=== PATIENT | female | born 1950 | race Caucasian/White ===

== ENCOUNTER 2017-10-16 23:40 | Emergency (ER) | payer MEDICARE, BC ==
[2017-10-16] MEDS ORDERED: ASPIRIN 81 MG CHEWABLE TABLET PO ONE (23:49)
[2017-10-16] MEDS ORDERED: NITROGLYCERIN 0.4MG SL TABLET #25 BTL SL PRN (23:49)
--- NOTE | 2017-10-16 23:59 | Emergency Department Record ---
History of Present Illness - General Chief Complaint: Chest Pain Stated Complaint: CHEST PAIN Time Seen by Provider: 10/16/17 23:48 Source: Patient Mode of Arrival: Ambulatory - History of Present Illness Initial Comments: Substernal chest pain began about 30 minutes prior to arrival tonight. It began while at rest watching TV. Severity is 3/10. Quality is ache, discomfort. Radiation is to the anterior neck and right jaw. No belching, no shortness of breath, nausea, diaphoresis or palpitations. She has had this before but it has always resolved with aspirin. Tonight she took 325 of aspirin with resolution briefly but the symptoms returned. No DM, smoking, or family history. She has htn and elevated cholesterol for which she is taking medication. Onset/Timin -: Minutes(s) Onset: During rest Pain Location: Substernal, Left chest Severity: Mild Severity scale (1-10): 3 - Related Data Allergies Allergy/AdvReac Type Severity Reaction Status Date / Time indomethacin [From Indocin] Allergy Intermediate DIZZINESS Unverified 10/01/16 09:31 indomethacin sodium Allergy Intermediate DIZZINESS Unverified 10/01/16 09:31 [From Indocin] NSAIDS (Non-Steroidal Allergy Intermediate lip Unverified 10/03/17 11:59 Anti-Inflamma swelling levofloxacin [From Levaquin] Allergy Unknown PT UNSURE Unverified 10/01/16 09:31 OF REACTION Travel Screening - Travel/Exposure Within Last 30 Days Have you traveled within the last 30 days?: No - Travel/Exposure Within Last Year Have you traveled outside the [place] in the last year?: No - Additonal Travel Details Have you been exposed to anyone with a communicable illness?: No - Travel Symptoms Symptom Screening: None Review of Systems Reviewed: No additional complaints except as noted below Constitutional: Reports: As per HPI. Denies: Chills, Fever, Malaise, Night sweats, Weakness, Weight change Eyes: Reports: As per HPI. Denies: Eye discharge, Eye pain, Photophobia, Vision change ENT: Reports: As per HPI. Denies: Congestion, Dental pain, Ear pain, Epistaxis , Hearing loss, Throat pain Respiratory: Reports: As per HPI. Denies: Cough, Dyspnea, Hemoptysis, Stridor, Wheezes Cardiovascular: Reports: As per HPI. Denies: Arrhythmia, Chest pain, Dyspnea on exertion, Edema, Murmurs, Orthopnea, Palpitations, Paroxysmal nocturnal dyspnea, Rheumatic Fever, Syncope Endocrine: Reports: As per HPI. Denies: Fatigue, Heat or cold intolerance, Polydipsia, Polyuria Gastrointestinal: Reports: As per HPI. Denies: Abdominal pain, Constipation, Diarrhea, Hematemesis, Hematochezia, Melena, Nausea, Vomiting Genitourinary: Reports: As per HPI. Denies: Abnormal menses, Discharge, Dyspareunia, Dysuria, Frequency, Hematuria, Incontinence, Retention, Urgency Musculoskeletal: Reports: As per HPI. Denies: Arthralgia, Back pain, Gout, Joint swelling, Myalgia, Neck pain Skin: Reports: As per HPI. Denies: Bruising, Change in color, Change in hair/ nails, Lesions, Pruritus, Rash Neurological: Reports: As per HPI. Denies: Abnormal gait, Confusion, Headache, Numbness, Paresthesias, Seizure, Tingling, Tremors, Vertigo, Weakness Psychiatric: Reports: As per HPI. Denies: Anxiety, Auditory hallucinations, Depression, Homicidal thoughts, Suicidal thoughts, Visual hallucinations Hematological/Lymphatic: Reports: As per HPI. Denies: Anemia, Blood Clots, Easy bleeding, Easy bruising, Swollen glands Past Medical History - SOCIAL HISTORY Smoking Status: Never smoker Alcohol Use: None Drug Use: None - RESPIRATORY Hx Respiratory Disorders: No - CARDIOVASCULAR Hx Cardio Disorders: Yes Hx Hypertension: Yes - NEURO Hx Neuro Disorders: No - GI Hx GI Disorders: No - Hx Genitourinary Disorders: No - ENDOCRINE Hx Endocrine Disorders: No - MUSCULOSKELETAL Hx Musculoskeletal Disorders: No - PSYCH Hx Psych Problems: No - HEMATOLOGY/ONCOLOGY Hx Hematology/Oncology Disorders: No Family Medical History Any Significant Family History?: No Physical Exam - General General Appearance: Alert, Oriented x3, Cooperative, No acute distress - Head Head exam: Normal inspection - Eye Eye exam: Normal appearance, PERRL Pupils: Normal accommodation - ENT ENT exam: Normal exam, Mucous membranes moist, Normal external ear exam, Normal orophraynx, TM's normal bilaterally Ear exam: Normal external inspection. negative: External canal tenderness Nasal Exam: Normal inspection. negative: Discharge, Sinus tenderness Mouth exam: Normal external inspection, Tongue normal Teeth exam: Normal inspection. negative: Dental caries Throat exam: Normal inspection. negative: Tonsillar erythema, Tonsillar exudate - Neck Neck exam: Normal inspection, Full ROM. negative: Tenderness - Respiratory Respiratory exam: Normal lung sounds bilaterally. negative: Respiratory distress - Cardiovascular Cardiovascular Exam: Regular rate, Normal rhythm, Normal heart sounds - GI/Abdominal GI/Abdominal exam: Soft. negative: Tenderness - Rectal Rectal exam: Deferred - exam: Deferred - Extremities Extremities exam: Normal inspection, Full ROM, Normal capillary refill. negative: Calf tenderness, Pedal edema, Tenderness - Back Back exam: Reports: Normal inspection, Full ROM. Denies: CVA tenderness (R), CVA tenderness (L), Muscle spasm, Rash noted, Tenderness - Neurological Neurological exam: Alert, CN II-XII intact, Normal gait, Oriented X3, Reflexes normal. negative: Motor sensory deficit - Psychiatric Psychiatric exam: Normal affect, Normal mood - Skin Skin exam: Dry, Intact, Normal color, Warm Course Vital Signs 10/16/17 23:42 Temperature 98.1 F Pulse Rate 71 Respiratory 20 Rate Blood Pressure 189/85 Pulse Ox 97 - Reevaluation(s) Reevaluation #1: 10/17/17 00:16 The patient is chest pain free after one nitro. Reevaluation #2: Results discussed with patient and her spouse. All questions answered. They prefer she be cared for by Dr. Oleary at [facility], her PCP. IT was explained that [facility] do not do admissions, but that Dr. Puri is covering for [facility] and he would be glad to admit her. 10/17/17 00:48 10/17/17 01:27 Reevaluation #3: Patient and spouse wish to be discharged home and will return if symptoms recur. I explained that her work up tonight has NOT ruled out a heart attack or other life threatening situations, that she needs a cardiac workup as it has been over 5 years since her last one. She would like to be discharged home and will follow with Dr. Oleary in the office. I explained that this would be an AMA discharge that they would be free to return if they changed their minds or if the symptoms returned. The spouse of the patient is requesting a 4 hour troponin before they be discharged home. 4 am repeat troponin is planned. Patient and her spouse were also informed of her TSH being elevated and therefore her thyroid is low and needs to be evaluated by their PCP. 10/17/17 01:14 10/17/17 01:29 Patient has been resting and dozing. Awaiting repeat troponin results. 10/17/17 04:36 Reevaluation #4: Repeat troponin is unchanged after 4 hours. Patient is to obtain an out patient cardiac workup through the PCP. and to follow up with elevated TSH 10/17/17 04:51 Medical Decision Making - Management Options MDM Management: Additional Work-up Planned (e.g. ADM/Transfer/OP Study) ( admission planned, however patient wishes to leave AMA) - Data Complexity MDM Data: Labs Ordered and/or Reviewed, X-Ray Ordered and/or Reviewed (CXR two view: Neg per ED physician), EKG Ordered and/or Reviewed (NSR 72/min; no acute changes, no prior available) - Lab Data Result diagrams: 10/16/17 00:00 10/16/17 00:00 - EKG Data -: EKG Interpreted by Me EKG: No Acute Changes Disposition Disposition: Other (AMA) Clinical Impression: Chest pain at rest, Elevated TSH Disposition: Against Medical Advice Condition: (1) Good Instructions: Chest Pain (ED) Additional Instructions: Obtain an out patient cardiac work up through your PCP's office. Call for follow up next week. Your thyroid TSH level was elevated this visit at 5.03. Have your family doctor follow up on this abnormal blood test. You may return at any time if your change your mind, or if your symptoms return. You also may consider returning to [facility] if you change your mind to avoid the need for an ambulance transfer there after evaluation here. Continue present medications. Forms: Patient Portal Access Quality - Quality Measures Quality Measures: N/A - Blood Pressure Screening Does Patient Have Any of the Following: No Blood Pressure Classification: Pre-Hypertensive BP Reading Systolic Measurement: 189 Diastolic Measurement: 85 Screening for High Blood Pressure: Patient Exclusion, Hx of HTN [G9744]
[2017-10-17 00:16] LABS: BASO % 0.9 % (0-6); EOS % 6.8 % (0-6); GRAN % 39.4 % (47-80); HEMATOCRIT 40.3 % (35.0-47.0); HEMOGLOBIN 13.9 gm/dl (11.6-16.0); LYMPH % 46.1 % (16-45); MEAN CELL VOLUME 84.3 fl (81-97); MEAN CORPUSCULAR HEMOGLOBIN 29.1 pg (27-33); MEAN CORPUSCULAR HGB CONC 34.5 g/dl (32-36); MEAN PLATELET VOLUME 11.7 fl (7.4-10.4); MONO % 6.8 % (0-9); PLATELET COUNT 306 K/uL (130-400); RED BLOOD COUNT 4.78 M/uL (3.80-5.40); RED CELL DISTRIBUTION WIDTH 13.6 % (11.5-14.5); WHITE BLOOD COUNT W/O DIFF 7.8 K/uL (4.2-12.2)
[2017-10-17 00:23] LABS: BILIRUBIN,TOTAL < 0.20 mg/dL (0.2-1.0); BLOOD UREA NITROGEN 18 mg/dL (8-23); CREATININE 0.5 mg/dL (0.5-0.9); EST GLOMERULAR FILTRATION RATE > 60 mL/min; TOTAL PROTEIN 6.7 g/dL (6.6-8.7)
[2017-10-17 00:25] LABS: GLUCOSE,RANDOM 121 mg/dL (74-109)
[2017-10-17 00:26] LABS: INR 0.9; PARTIAL THROMBOPLASTIN TIME 23.8 SECONDS (24.5-39.1); PROTHROMBIN TIME (PATIENT) 9.3 SECONDS (9.5-12.1)
[2017-10-17 00:28] LABS: ALB/GLOB RATIO 1.5 (1.1-1.8); ALKALINE PHOSPHATASE 123 U/L (35-104); ALT/SGPT 10 U/L (<33); AST/SGOT 5 U/L (10.0-35.0)
[2017-10-17 00:37] LABS: NTpro B-NATRIURETIC PEPTIDE 21.37 pg/mL (<125)
[2017-10-17 00:47] LABS: THYROID STIMULATING HORMONE 5.03 uIU/mL (0.270-4.20)
--- NOTE | 2017-10-19 20:00 | RADIOLOGY REPORT ---
EXAM: CHEST 2 VIEWS HISTORY: MID STERNAL CHEST PAIN. TECHNIQUE: PA and lateral views. COMPARISON: Two-view chest 04/23/16. FINDINGS: Heart size is within normal limits. No definite acute infiltrate identified. No pleural effusion or pneumothorax evident. Minor apical pleural thickening bilaterally. Surgical clips right upper quadrant of the abdomen, presumably from cholecystectomy. Minor spurring in the thoracic spine. IMPRESSION: 1. MINOR APICAL PLEURAL THICKENING. 2. MINOR SPURRING IN THE SPINE. 3. NO ACUTE INFILTRATE EVIDENT. JOB NUMBER: [id number] [facility]
== END 2017-10-17 05:06 | disposition left against medical advice (07) ==
LOC: ER 23:40
DX: R07.89 Other chest pain (principal); R94.6 Abnormal results of thyroid function studies; I10 Essential (primary) hypertension
CPT/HCPCS: 71046; 80053; 83880; 84443; 84484; 85025; 85379; 85610; 85730; 93005; 93010; 99284

== ENCOUNTER 2017-12-03 13:31 | Emergency (ER) | payer MEDICARE, BC ==
[2017-12-03] MEDS ORDERED: Diph,Pert(Acell),Tet Vac 0.5 ML SYR IM ONE (13:54)
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
== END 2017-12-03 14:30 | disposition home or self-care (01) ==
LOC: ER 13:31
DX: T63.301A Toxic effect of unspecified spider venom, accidental (unintentional), initial encounter (principal); W57.XXXA Bitten or stung by nonvenomous insect and other nonvenomous arthropods, initial encounter
CPT/HCPCS: 90715; 99282

== ENCOUNTER 2018-05-07 18:53 | Observation (INO) | payer MEDICARE, BC ==
[2018-05-07] MEDS ORDERED: ONDANSETRON HCL IV 4 MG/2 ML VIAL IVP ONE (19:02)
[2018-05-07] MEDS ORDERED: MORPHINE SULFATE 10 MG/ML VIAL IVP ONE (19:03)
--- NOTE | 2018-05-07 19:10 | Emergency Department Record ---
History of Present Illness - General Chief Complaint: Abdominal Pain Stated Complaint: UPPER ABD PAIN Time Seen by Provider: 05/07/18 19:02 Source: Patient Mode of Arrival: Ambulatory Limitations: No limitations - History of Present Illness Initial Comments: 67 yo female presents to ED for evaluation of RUQ and epigastric pain symptoms associated with loose stools for the past 4 days. Patient reports that she was seen in ED at [facility] yesterday, underwent both CT and US of the abdomen, was diagnosed with pancreatitis. Patient denies fevers, chills, or vomiting symptoms. Patient reports previous chalino and partial hysterectomy. Patient reports that she had been taking a supplement vitamin with Lipase included, was told to stop the supplement and placed on a "light diet", was told to return to ED if her pain worsens. MD Complaint: Abdominal pain Onset/Timin -: Days(s) Location: Epigastric, RUQ Radiation: Back Migration to: R Flank Severity: Moderate Quality: Aching Improves With: Nothing Worsens With: Nothing Associated Symptoms: Denies other symptoms - Related Data Home Medications Medication Instructions Recorded Confirmed Last Taken Cyanocobalamin (Vitamin B-12) 5,000 mcg PO DAILY 05/07/18 05/07/18 Unknown [Vitamin B12] Rosuvastatin Calcium 5 mg PO DAILY 05/07/18 05/07/18 Unknown Allergies Allergy/AdvReac Type Severity Reaction Status Date / Time indomethacin [From Indocin] Allergy Intermediate DIZZINESS Verified 12/03/17 13: 37 indomethacin sodium Allergy Intermediate DIZZINESS Verified 12/03/17 13:37 [From Indocin] NSAIDS (Non-Steroidal Allergy Intermediate lip Verified 12/03/17 13:37 Anti-Inflamma swelling levofloxacin [From Levaquin] Allergy Unknown PT UNSURE Verified 12/03/17 13:37 OF REACTION Review of Systems Constitutional: Denies: Chills, Fever, Malaise, Night sweats Eyes: Denies: Eye discharge, Eye pain ENT: Denies: Congestion, Ear pain, Epistaxis Respiratory: Denies: Cough, Dyspnea Cardiovascular: Denies: Chest pain, Dyspnea on exertion Endocrine: Denies: Fatigue, Heat or cold intolerance Gastrointestinal: Reports: Abdominal pain, Diarrhea. Denies: Nausea, Vomiting Genitourinary: Denies: Incontinence, Retention Musculoskeletal: Reports: Back pain. Denies: Arthralgia Skin: Denies: Bruising, Change in color Neurological: Denies: Abnormal gait, Confusion, Headache Psychiatric: Denies: Anxiety Hematological/Lymphatic: Denies: Anemia, Blood Clots Past Medical History - SOCIAL HISTORY Smoking Status: Never smoker Drug Use: None - RESPIRATORY Hx Respiratory Disorders: No - CARDIOVASCULAR Hx Cardio Disorders: Yes Hx Hypertension: Yes - NEURO Hx Neuro Disorders: No - GI Hx GI Disorders: No - Hx Genitourinary Disorders: No - ENDOCRINE Hx Endocrine Disorders: No - MUSCULOSKELETAL Hx Musculoskeletal Disorders: No - PSYCH Hx Psych Problems: No - HEMATOLOGY/ONCOLOGY Hx Hematology/Oncology Disorders: Yes Hx Cancer: Yes Comment:: melanoma Physical Exam - General General Appearance: Alert, Oriented x3, Cooperative, Mild distress Limitations: No limitations - Head Head exam: Atraumatic, Normocephalic, Normal inspection Head exam detail: negative: Abrasion, Contusion, Felix's sign, General tenderness, Hematoma, Laceration - Eye Eye exam: Normal appearance. negative: Conjunctival injection, Periorbital swelling, Periorbital tenderness, Scleral icterus - ENT Ear exam: negative: Auricular hematoma, Auricular trauma Nasal Exam: negative: Active bleeding, Discharge, Dried blood, Foreign body Mouth exam: negative: Drooling, Laceration, Muffled voice, Tongue elevation - Neck Neck exam: Normal inspection. negative: Meningismus, Tenderness - Respiratory Respiratory exam: Normal lung sounds bilaterally. negative: Respiratory distress, Rhonchi, Stridor, Wheezes - Cardiovascular Cardiovascular Exam: Regular rate, Normal rhythm, Normal heart sounds - GI/Abdominal GI/Abdominal exam: Soft, Other (Overall nontender, nondistended abdominal examination. No peritoneal signs, guarding, or rebound are present.). negative : Rebound, Rigid, Tenderness - Rectal Rectal exam: Deferred - exam: Deferred - Extremities Extremities exam: Normal inspection. negative: Pedal edema, Tenderness - Neurological Neurological exam: Alert, Normal gait, Oriented X3 - Psychiatric Psychiatric exam: Normal affect, Normal mood - Skin Skin exam: Normal color. negative: Abrasion Type of lesion: negative: abrasion Course Vital Signs 05/07/18 19:01 Temperature 98.0 F Pulse Rate [ 79 Pulse Ox Probe] Respiratory 20 Rate Blood Pressure 173/79 [Left Arm] Pulse Ox 95 - Reevaluation(s) Reevaluation #1: 05/07/18 19:08 Patient was seen and examined, abdominal examination is benign at this time. Will order laboratory studies, obtain records from imaging performed at [facility] yesterday. Reevaluation #2: 05/07/18 19:34 records reviewed from [facility] 05/06/18: CT Abdomen and Pelvis: No acute intra-abdominal process US Abdomen: Fatty liver, GB surgically absent. Lipase 292 UA negative CBC and comprehensive panel are WNL. Reevaluation #3: 05/07/18 19:48 Laboratory studies were reviewed: Lipase 178 Potassium 3.3 CO2 21 Cl- 109. Patient was reassessed, reports improvement in her pain symptoms. Discussed observation in the Hospital given her repeat ED visit, patient will discuss staying vs. discharge home with her SO. Reevaluation #4: 05/07/18 20:16 Patient has decided to stay for observation, will admit at this time. 05/07/18 22:33 Case was discussed with Pascale Pérez, will accept admission at this time. Medical Decision Making - Lab Data Result diagrams: 05/07/18 19:11 05/07/18 19:11 Disposition Disposition: Admit Clinical Impression: Right upper quadrant abdominal pain Disposition: Home, Self-Care Decision to Admit: Admit from ER Decision to Admit Date: 05/07/18 Decision to Admit Time: 20:17 Condition: (2) Stable Time of Disposition: 20:08 Quality - Quality Measures Quality Measures: N/A - Blood Pressure Screening Does Patient Have Any of the Following: Active Dx of HTN Blood Pressure Classification: Pre-Hypertensive BP Reading Systolic Measurement: 174 Diastolic Measurement: 81 Screening for High Blood Pressure: Patient Exclusion, Hx of HTN [G9744]
[2018-05-07] MEDS ORDERED: 0.9 % SODIUM CHLORIDE 1000ML 1,000 ML IV SCH (19:15)
[2018-05-07 19:22] LABS: HEMATOCRIT 41.3 % (35.0-47.0); HEMOGLOBIN 14.1 gm/dl (11.6-16.0); MEAN CELL VOLUME 83.1 fl (81-97); MEAN CORPUSCULAR HEMOGLOBIN 28.4 pg (27-33); MEAN CORPUSCULAR HGB CONC 34.1 g/dl (32-36); MEAN PLATELET VOLUME 12.1 fl (7.4-10.4); PLATELET COUNT 249 K/uL (130-400); RED BLOOD COUNT 4.97 M/uL (3.80-5.40); RED CELL DISTRIBUTION WIDTH 13.9 % (11.5-14.5); WHITE BLOOD COUNT W/O DIFF 11.9 K/uL (4.2-12.2)
[2018-05-07 19:35] LABS: BLOOD UREA NITROGEN 9 mg/dL (8-23); CREATININE 0.5 mg/dL (0.5-0.9); EST GLOMERULAR FILTRATION RATE > 60 mL/min
[2018-05-07 19:36] LABS: LIPASE 178 U/L (13-60); TOTAL PROTEIN 7.6 g/dL (6.6-8.7)
[2018-05-07 19:38] LABS: GLUCOSE,RANDOM 161 mg/dL (74-109)
[2018-05-07 19:41] LABS: ALB/GLOB RATIO 1.4 (1.1-1.8); ALBUMIN 4.4 g/dL (4.0-5.0); ALKALINE PHOSPHATASE 173 U/L (35-104); ALT/SGPT 27 U/L (<33); AST/SGOT 46 U/L (10.0-35.0)
[2018-05-07] MEDS ORDERED: HYOSCYAMINE SULFATE ODT 0.125 MG TAB.SUBL SL ONE (20:17)
[2018-05-07] MEDS ORDERED: HYOSCYAMINE SULFATE ODT 0.125 MG TAB.SUBL SL PRN (21:25)
[2018-05-07] MEDS ORDERED: MORPHINE SULFATE 10 MG/ML VIAL IVP PRN (21:25)
[2018-05-07] MEDS: 0.9 % SODIUM CHLORIDE 1000ML 1,000 ML IV PRN (22:26)
[2018-05-08] MEDS: 0.9 % SODIUM CHLORIDE 1000ML 1,000 ML IV PRN (08:43)
--- NOTE | 2018-05-08 09:31 | History & Physical ---
History of Present Illness - Date of Service Date of Service for History & Physical: 05/08/18 - History of Present Illness Admitting Diagnosis: RUQ abdominal pain. Elevated lipase History of Present Illness: Justyna Cade is a 67 y/o female presenting to ED 05/07/18 for complaint of RUQ abdominal pain, recently diagnosed with pancreatitis in [facility] ED 05/06/18. Prior to her arrival to [facility] ED she had a 4 day history of diarrhea, nausea, dry heaving. Denied any blood in her stool at that time. She was discharged home from [facility] from the ED. Followed up with her PCP 05/07/18 with instructions of a "light diet", orders for repeat blood work and instruction to return to ED for any worsening of abdominal pain. She does admit to starting a new ketogenic supplement- Ketozyme, within the past week does does contain Lipase in the the ingredients. She denies ETOH history and has never had pancreatitis before. Past medical history includes HTN and skin melanoma. In ED CBC unremarkable for acute infection process (WBC nl, eosinophils 38), Potassium 3.3, AST 46, alk phos 173, lipase 178. [facility] records reviewed by ED and staff and myself showing CT abdomen with no acute process or findings, abdominal US with fatty liver, GB surgically absent, Lipase 292, lactate 1.9, WBC 13.1. She was admitted for observation for persistent abdominal pain s/p diagnosis for pancreatitis including pain control and IV hydration. 05/08/18: Resting in bed comfortably. Reports she is in not pain today, has not needed any PRN pain control since last night. Had a clear liquid breakfast today and tolerated well without any abdominal pain, diarrhea or nausea. PCP: Dr Oleary Travel Screening - Travel/Exposure Within Last 30 Days Have you traveled within the last 30 days?: No - Travel/Exposure Within Last Year Have you traveled outside the [place] in the last year?: No - Additonal Travel Details Have you been exposed to anyone with a communicable illness?: No - Travel Symptoms Symptom Screening: None Review of Systems Constitutional: Denies: Chills, Fever, Malaise, Night sweats Eyes: Denies: Eye discharge, Eye pain ENT: Denies: Congestion, Ear pain, Epistaxis Respiratory: Denies: Cough, Dyspnea Cardiovascular: Denies: Chest pain, Dyspnea on exertion Endocrine: Denies: Fatigue, Heat or cold intolerance Gastrointestinal: Reports: Diarrhea. Denies: Abdominal pain, Nausea, Vomiting Genitourinary: Denies: Incontinence, Retention Musculoskeletal: Reports: Back pain. Denies: Arthralgia Skin: Denies: Bruising, Change in color Neurological: Denies: Abnormal gait, Confusion, Headache Psychiatric: Denies: Anxiety Hematological/Lymphatic: Denies: Anemia, Blood Clots Past Medical History - SOCIAL HISTORY Smoking Status: Never smoker Drug Use: None - RESPIRATORY Hx Respiratory Disorders: No - CARDIOVASCULAR Hx Cardio Disorders: Yes Hx Hypertension: Yes - NEURO Hx Neuro Disorders: No - GI Hx GI Disorders: No - Hx Genitourinary Disorders: No - ENDOCRINE Hx Endocrine Disorders: No - MUSCULOSKELETAL Hx Musculoskeletal Disorders: No - PSYCH Hx Psych Problems: No - HEMATOLOGY/ONCOLOGY Hx Hematology/Oncology Disorders: Yes Hx Cancer: Yes Comment:: melanoma Family Medical History Any Significant Family History?: Yes Hx Alcohol Use: Father Hx Cancer: Mother, Brother/Sister Hx Depression: Brother/Sister Hx Diabetes: Father, Brother/Sister Hx HTN: Father, Mother, Brother/Sister Hx Stroke: Father H&P Meds/Allergies - Allergies Allergies: Allergies Allergy/AdvReac Type Severity Reaction Status Date / Time indomethacin [From Indocin] Allergy Intermediate DIZZINESS Verified 12/03/17 13: 37 indomethacin sodium Allergy Intermediate DIZZINESS Verified 12/03/17 13:37 [From Indocin] NSAIDS (Non-Steroidal Allergy Intermediate lip Verified 12/03/17 13:37 Anti-Inflamma swelling levofloxacin [From Levaquin] Allergy Unknown PT UNSURE Verified 12/03/17 13:37 OF REACTION - Home Medications Home Medications Medication Instructions Recorded Confirmed Last Taken Cyanocobalamin (Vitamin B-12) 5,000 mcg PO DAILY 05/07/18 05/07/18 Unknown [Vitamin B12] Rosuvastatin Calcium 5 mg PO DAILY 05/07/18 05/07/18 Unknown - Active Medications Active Medications: Current Medications Hyoscyamine (Levsin Odt) 0.25 mg SL Q4H PRN PRN Reason: ABDOMINAL PAIN Last Admin: 05/08/18 00:37 Dose: 0.25 mg Sodium Chloride () 1,000 mls @ 100 mls/hr IV .Q10H PRN PRN Reason: LARGE VOLUME IV Last Admin: 05/08/18 08:43 Dose: 100 mls/hr Morphine Sulfate (Morphine Sulfate) 5 mg IVP Q4H PRN PRN Reason: PAIN - MODERATE (5-7) Last Admin: 05/07/18 22:30 Dose: 5 mg Physical Exam - Vital Signs Vital Signs: Vital Signs - Last 24 Hrs Temp Pulse Resp BP Pulse Ox 05/07/18 20:55 98.2 F 74 18 171/72 98 05/07/18 19:51 88 16 174/81 99 05/07/18 19:01 98.0 F 79 20 173/79 95 - General General Appearance: Alert, Oriented x3, Cooperative, No acute distress Limitations: No limitations - Head Head exam: Atraumatic, Normocephalic, Normal inspection Head exam detail: negative: Abrasion, Contusion, Felix's sign, General tenderness, Hematoma, Laceration - Eye Eye exam: Normal appearance. negative: Conjunctival injection, Periorbital swelling, Periorbital tenderness, Scleral icterus - ENT Ear exam: negative: Auricular hematoma, Auricular trauma Nasal Exam: negative: Active bleeding, Discharge, Dried blood, Foreign body Mouth exam: negative: Drooling, Laceration, Muffled voice, Tongue elevation - Neck Neck exam: Normal inspection. negative: Meningismus, Tenderness - Respiratory Respiratory exam: Normal lung sounds bilaterally. negative: Respiratory distress, Rhonchi, Stridor, Wheezes - Cardiovascular Cardiovascular Exam: Regular rate, Normal rhythm, Normal heart sounds Peripheral Pulses: 2+: Dorsalis Pedis (R), Dorsalis Pedis (L) - GI/Abdominal GI/Abdominal exam: Soft, Normal bowel sounds, Other (Overall nontender, nondistended abdominal examination. No peritoneal signs, guarding, or rebound are present.). negative: Rebound, Rigid, Tenderness - Rectal Rectal exam: Deferred - exam: Deferred - Extremities Extremities exam: Normal inspection, Full ROM. negative: Calf tenderness, Pedal edema, Tenderness - Neurological Neurological exam: Alert, Normal gait, Oriented X3 - Psychiatric Psychiatric exam: Normal affect, Normal mood - Skin Skin exam: Normal color. negative: Abrasion Type of lesion: negative: abrasion Results - Labs Result Diagrams: 05/08/18 06:30 05/08/18 06:30 Labs Last 24 Hours: Laboratory Results - last 24 hr 03/07/19 03/07/19 19:11 19:11 WBC 11.9 RBC 4.97 Hgb 14.1 Hct 41.3 MCV 83.1 MCH 28.4 MCHC 34.1 RDW 13.9 Plt Count 249 MPV 12.1 H Neutrophils % 30.0 L Band Neutrophils % 0.0 Eosinophils % Not Reportable Basophils % Not Reportable Lymphocytes 30.0 Monocytes 2.0 Basophils 0.0 Eosinophil Count 38.0 H Sodium 144 Potassium 3.3 L Chloride 109 H Carbon Dioxide 21.0 L Anion Gap 14.0 BUN 9 Creatinine 0.5 Estimated GFR > 60 Random Glucose 161 H Calcium 9.4 Total Bilirubin 0.60 AST 46 H ALT 27 Alkaline Phosphatase 173 H Total Protein 7.6 Albumin 4.4 Globulin 3.2 Albumin/Globulin Ratio 1.4 Lipase 178 H VTE H&P Assessment - Risk for VTE Risk for VTE: Yes Risk Level: Low Risk Assessment Date: 05/08/18 Risk Assessment Time: 10:50 VTE Orders Placed or Will Be Placed: Yes Plan - Detailed Diagnosis and Plan (1) Pancreatitis Current Visit: Yes Status: Acute Base Code: K85.90 - ACUTE PANCREATITIS WITHOUT NECROSIS OR INFECTION, UNSP Comment: 05/08/18 - Lipase 292 in ED - IV hydration NS @ 100ml/hr - Pain control- Levsin 0.25mg SL Q4hr PRN, MS 5m,g IVP Q 4hr PRN - Pain-free this am, no nausea, vomiting, diarrhea - Has tolerated clear liquid diet, advance to soft - Potential discharge this afternoon if she tolerates diet advancement - Discontinue taking ketogenic supplement - Repeat CBC, lipase, CMP, amylase this am (2) Full code status Current Visit: Yes Status: Acute Base Code: Z78.9 - OTHER SPECIFIED HEALTH STATUS Comment: 05/08/18 (3) DVT prophylaxis Current Visit: Yes Status: Acute Base Code: [id number] - Comment: 05/08/18 - Low risk - Nursing to encourage ambulation - Will initiate VTE prophylaxis if admitted> 24 hrs.
[2018-05-08] MEDS ORDERED: ROSUVASTATIN 5 MG PO SCH (10:15)
[2018-05-08] MEDS ORDERED: FELODIPINE 5 MG PO SCH (10:15)
[2018-05-08] MEDS ORDERED: TRAVATAN Z OPTH OPTH SCH ×2 (10:15→22:00)
[2018-05-08] MEDS ORDERED: DESLORATADINE 5 MG PO SCH (10:15)
[2018-05-08 10:25] LABS: GLUCOSE,RANDOM 105 mg/dL (74-109)
[2018-05-08 10:26] LABS: ALB/GLOB RATIO 1.5 (1.1-1.8); ALBUMIN 3.7 g/dL (4.0-5.0); ALKALINE PHOSPHATASE 224 U/L (35-104); ALT/SGPT 249 U/L (<33); AST/SGOT 365 U/L (10.0-35.0); BLOOD UREA NITROGEN 8 mg/dL (8-23); CREATININE 0.5 mg/dL (0.5-0.9); EST GLOMERULAR FILTRATION RATE > 60 mL/min; HEMATOCRIT 37.5 % (35.0-47.0); HEMOGLOBIN 12.2 gm/dl (11.6-16.0); LIPASE 40 U/L (13-60); MEAN CELL VOLUME 86.2 fl (81-97); MEAN CORPUSCULAR HGB CONC 32.5 g/dl (32-36); MEAN PLATELET VOLUME 12.4 fl (7.4-10.4); PLATELET COUNT 217 K/uL (130-400); RED BLOOD COUNT 4.35 M/uL (3.80-5.40); TOTAL PROTEIN 6.2 g/dL (6.6-8.7); WHITE BLOOD COUNT W/O DIFF 10.5 K/uL (4.2-12.2)
--- NOTE | 2018-05-08 15:13 | Discharge Summary ---
Providers Discharge Summary Date: 05/08/18 Date of admission: 05/07/18 20:44 Attending physician: ALAINA FORD Primary care physician: FRANKY BRANNON D.O. Physical Exam - Vital Signs Vital Signs: Vital Signs - Last 24 Hrs Temp Pulse Resp BP Pulse Ox 05/08/18 12:00 97.8 F 67 18 127/58 95 05/08/18 08:00 97.0 F L 65 18 151/77 98 05/07/18 20:55 98.2 F 74 18 171/72 98 05/07/18 19:51 88 16 174/81 99 05/07/18 19:01 98.0 F 79 20 173/79 95 - General General Appearance: Alert, Oriented x3, Cooperative, Mild distress Limitations: No limitations - Head Head exam: Atraumatic, Normocephalic, Normal inspection Head exam detail: negative: Abrasion, Contusion, Felix's sign, General tenderness, Hematoma, Laceration - Eye Eye exam: Normal appearance. negative: Conjunctival injection, Periorbital swelling, Periorbital tenderness, Scleral icterus - ENT Ear exam: negative: Auricular hematoma, Auricular trauma Nasal Exam: negative: Active bleeding, Discharge, Dried blood, Foreign body Mouth exam: negative: Drooling, Laceration, Muffled voice, Tongue elevation - Neck Neck exam: Normal inspection. negative: Meningismus, Tenderness - Respiratory Respiratory exam: Normal lung sounds bilaterally. negative: Respiratory distress, Rhonchi, Stridor, Wheezes - Cardiovascular Cardiovascular Exam: Regular rate, Normal rhythm, Normal heart sounds Peripheral Pulses: 2+: Dorsalis Pedis (R), Dorsalis Pedis (L) - GI/Abdominal GI/Abdominal exam: Soft, Other (Overall nontender, nondistended abdominal examination. No peritoneal signs, guarding, or rebound are present.). negative : Rebound, Rigid, Tenderness - Rectal Rectal exam: Deferred - exam: Deferred - Extremities Extremities exam: Normal inspection. negative: Pedal edema, Tenderness - Neurological Neurological exam: Alert, Normal gait, Oriented X3 - Psychiatric Psychiatric exam: Normal affect, Normal mood - Skin Skin exam: Normal color. negative: Abrasion Type of lesion: negative: abrasion Hospitalization - Hospitalization Admission Diagnosis: RUQ abdominal pain. Elevated lipase - Problem List/Discharge Diagnosis (1) Pancreatitis Status: Acute Base Code: K85.90 - ACUTE PANCREATITIS WITHOUT NECROSIS OR INFECTION, UNSP Comment: 05/08/18 - Pain-free this am, no nausea, vomiting, diarrhea - Lipase 292 in ED--> normal this am - AST 46--> 365, ALT 27--> 249 this am. Remains asymptomatic. Does report history of hepatitis as a child. Has not been screened after age 65. - Hepatitis screening panel - Tolerated advanced diet - Discontinue taking ketogenic supplement - Discharge home today - Follow up with PCP as scheduled, repeat CMP, Amylase, Lipase 05/11 (2) Full code status Status: Acute Base Code: Z78.9 - OTHER SPECIFIED HEALTH STATUS Comment: (3) DVT prophylaxis Status: Acute Base Code: [id number] - Comment: 05/08/18 - Low risk - Nursing to encourage ambulation - Will initiate VTE prophylaxis if admitted> 24 hrs. - Hospitalization Course Disposition: Home, Self-Care Hospital Course: Justyna Cade is a 67 y/o female presenting to ED 05/07/18 for complaint of RUQ abdominal pain, recently diagnosed with pancreatitis in [facility] ED 05/06/18. She reported to [facility] ED staff she was seen in [facility] ED and was sent home from there with instructions of a "light diet" and to return of any worsening of abdominal pain. Past medical history includes HTN and skin melanoma. In ED CBC unremarkable for acute infection process (WBC nl, eosinophils 38), Potassium 3.3, AST 46, alk phos 173, lipase 178. [facility] records reviewed by ED and staff and myself showing CT abdomen with no acute process or findings, abdominal US with fatty liver, GB surgically absent, Lipase 292, lactate 1.9, WBC 13.1. She was admitted for observation for persistent abdominal pain s/p diagnosis for pancreatitis Abnormal Labs: Abnormal Lab Results 05/07/18 05/07/18 05/08/18 Range/Units 19:11 19:11 06:30 MPV 12.1 H 12.4 H (7.4-10.4) fl Neutrophils % 30.0 L 42.0 L (47-80) % Eosinophil Count 38.0 H 30.0 H (0-6) % Potassium 3.3 L (3.4-4.5) mmol/L Chloride 109 H (98-107) mmol/L Carbon Dioxide 21.0 L (22-29) mmol/L Random Glucose 161 H (74-109) mg/dL Calcium (8.8-10.2) mg/dL AST 46 H (10.0-35.0) U/L ALT (<33) U/L Alkaline Phosphatase 173 H (35-104) U/L Total Protein (6.6-8.7) g/dL Albumin (4.0-5.0) g/dL Lipase 178 H (13-60) U/L 05/08/18 Range/Units 06:30 MPV (7.4-10.4) fl Neutrophils % (47-80) % Eosinophil Count (0-6) % Potassium (3.4-4.5) mmol/L Chloride 108 H (98-107) mmol/L Carbon Dioxide (22-29) mmol/L Random Glucose (74-109) mg/dL Calcium 8.4 L (8.8-10.2) mg/dL AST 365 H (10.0-35.0) U/L ALT 249 H (<33) U/L Alkaline Phosphatase 224 H (35-104) U/L Total Protein 6.2 L (6.6-8.7) g/dL Albumin 3.7 L (4.0-5.0) g/dL Lipase (13-60) U/L Condition at Discharge: (2) Stable Discharge Medications - Discharge Medications Prescriptions: Hyoscyamine Sulfate [Levsin Odt] 0.25 mg SL Q4H PRN #15 tab.subl PRN Reason: Abdominal Pain Tramadol HCl 50 mg PO Q6H PRN #10 tab PRN Reason: Abdominal Pain Home Medications: Ambulatory Orders Cholecalciferol (Vitamin D3) [Vitamin D3] 4,000 unit PO DAILY 12/24/13 [Last Taken 12/03/17] Felodipine [Felodipine ER] 5 mg PO QD tab 06/28/15 [Last Taken 12/03/17] Desloratadine 5 mg PO DAILY tab 02/02/16 [Last Taken 12/03/17] Travoprost [Travatan Z] 1 drop OP QHS drop 02/02/16 [Last Taken 12/03/17] Cyanocobalamin (Vitamin B-12) [Vitamin B12] 5,000 mcg PO DAILY 05/07/18 [Last Taken Unknown] Rosuvastatin Calcium 5 mg PO DAILY 05/07/18 [Last Taken Unknown] Hyoscyamine Sulfate [Levsin Odt] 0.25 mg SL Q4H PRN #15 tab.subl 05/08/18 [Last Taken Unknown] Tramadol HCl 50 mg PO Q6H PRN #10 tab 05/08/18 [Last Taken Unknown] Discharge Plan - Discharge Instructions Activity at Discharge: Increase Activity as Tolerated Diet at Discharge: Other (bland diet) Instructions: Pancreatitis (DC) Additional Instructions: 2 Activity: Increase Activity as Tolerated 2 Diet: [place] 2 2 Follow Up: [Follow up with your PCP in 1 week] 2 2 Additional: Your liver enzymes elevated significantly overnight although you are feeling much better Hepatitis panel was drawn by lab and we will have results for you in about 24 hours Have labs redrawn as ordered by your PCP on the scheduled days indicated on your prescription Do not use Tylenol, Ibuprofen or Alcohol Quality Measures - Quality Measures Quality Measures: Advance Directives, Documentation of Current Medications in Medical Record, Elder Maltreatment Screen and Follow-Up Plan, Screening for High Blood Pressure and F/U Documented - Current Medications Quality Measure: Measure #130: Documentation of Current Medications Documentation of Current Medications: <Current Medications Documented/Reviewed> [[id number]] - Blood Pressure Screening Quality Measure: Screening for High Blood Pressure and Follow-Up Documented Does Patient Have Any of the Following: No Blood Pressure Classification: Pre-Hypertensive BP Reading Systolic Measurement: 127 Diastolic Measurement: 58 Screening for High Blood Pressure: < Pre-Hypertensive BP, F/U Documented > [ [id number]] Pre-Hypertensive Follow-up Interventions: Follow-up with rescreen every year. - Advance Directives Quality Measure: Measure #47: Care Plan Advance Directives Established: No Advance Directives Information Provided To Patient: No Advance Directives on File: No Living Will: No Power of Medical Psychotherapist: No Advance Care Planning: <Care Plan/Decision Maker Documented; Discussed & Documented> [[id number]] - Elder Abuse Suspicion Index Screening: Elder Abuse Suspicion Index Screening Rely on people for bathing, dressing, shopping, banking, etc: No Prevented from getting food, clothes, medication, etc: No Made to feel shamed or threatened by someone: No Forced to sign papers or use money against will: No Feel afraid, touched in ways not wanted or hurt physically: No Poor eye contact, withdrawn, malnourished, cuts or bruises: No Screening Result: Negative result EASI Reference Information: Ron MONTES, Aron C, Syd D, Sandra Mujica.Development and validation of a tool to assist physicians identification of elder abuse: The Elder Abuse Suspicion Index (EASI ). Journal of Elder Abuse and Neglect, 2008; 20 (3): 276-300. - Elder Maltreatment Screen Quality Measures: Elder Maltreatment Screen and Follow-Up Plan Elder Maltreatment Screen: <Negative, No Follow-Up Plan Required> [[id number]]
[2018-05-09 01:25] LABS: HEP A AB IGM Nonreactive (Nonreactive); HEPATITIS B CORE ANTIBODY,IGM Nonreactive (Nonreactive); HEPATITIS B SURFACE ANTIGEN Nonreactive (Nonreactive); HEPATITIS C VIRUS ANTIBODY Nonreactive (Nonreactive)
== END 2018-05-08 16:00 | disposition home or self-care (01) ==
LOC: ER 18:53 → MEDSURG 20:44
PROVIDERS: ADMIT Internal Medicine; ATTEND Internal Medicine
DX: K85.90 Acute pancreatitis without necrosis or infection, unspecified (principal); R74.8 Abnormal levels of other serum enzymes; I10 Essential (primary) hypertension; Z90.49 Acquired absence of other specified parts of digestive tract; Z85.820 Personal history of malignant melanoma of skin
CPT/HCPCS: 83690 ×2; 86803; 80053 ×2; 86705; 87340; 85027 ×2; G0378 ×2; J1980 ×2; J2405; J2270; 99223; 99285; J7030